=== PATIENT | female | born 1965 | race Caucasian/White ===

== ENCOUNTER 2020-03-10 18:30 | Emergency (ER) | payer OTHER, BC ==
[~2020-03-10] VITALS: Ht 154.9 cm; Wt 71.8 kg
[2020-03-10 18:36] VITALS: BP 148/92
[2020-03-10 19:29] LABS: URINE HCG NEGATIVE (NEG)
[2020-03-10 19:31] LABS: CLARITY,URINE CLEAR (Clear); COLOR,URINE YELLOW (Yellow); GLUCOSE, URINE NEGATIVE (Neg); KETONES,URINE NEGATIVE (Neg); LEUKOCYTE ESTERASE ,URINE MODERATE (Neg); NITRITES, URINE NEGATIVE (Neg); OCCULT BLOOD,URINE MODERATE (Neg); PH,URINE 6.5 (4.8-8.0); PROTEIN,URINE NEGATIVE (Neg); UROBILINOGEN,URINE 0.2 E.U/dL (0.2-1.0)
[2020-03-10 19:32] LABS: UA COLLECTION TYPE VOIDED
[2020-03-10 19:37] LABS: SQUAMOUS EPITHELIAL CELL,UR FEW /LPF (FEW)
[2020-03-10 19:38] LABS: RBC,URINE 0-2 /HPF (0-2)
[2020-03-10 19:39] LABS: BACTERIA,URINE 1+ /HPF (Neg)
[2020-03-10 19:40] LABS: WBC,URINE 20-30 /HPF (0-4)
[2020-03-10] MEDS ORDERED: CEPH-572 PO (20:50)
== END 2020-03-10 21:11 | disposition home or self-care (01) ==
LOC: ER 18:30
DX: N10 Acute pyelonephritis (principal); N30.10 Interstitial cystitis (chronic) without hematuria; Z98.890 Other specified postprocedural states
CPT/HCPCS: 81001; 81025; 87088; 99283